=== PATIENT | female | born 1955 | race Hispanic/Latino ===

== ENCOUNTER 2017-05-08 17:47 | Emergency (ER) | payer OTHER ==
[2017-05-08] MEDS ORDERED: XYLOCAINE 1% MPF 5 mL INFILTRATI ONE (19:46)
[2017-05-08] MEDS ORDERED: ROCEPHIN IM ONE (19:46)
--- NOTE | 2017-05-08 20:18 | XRay Report ---
FINAL REPORT EXAM: XR TIBIA FIBULA 2V LT HISTORY: redness, swelling COMPARISON: None available. FINDINGS: AP lateral views of left tibia and fibula obtained. Subtle deformity of the proximal fibular diaphysis on the lateral view compatible sequelae of prior trauma. No definite acute fracture or focal bony erosive changes. Joint spaces are preserved. Soft tissues are unremarkable by plain film. IMPRESSION: No acute bony abnormality.
[2017-05-08 20:25] LABS: Basophils % (Auto) 0.2 % (0.0-1.8); Eosinophils % (Auto) 0.6 % (0.0-4.3); Mean Corpuscular HGB Conc 34 % (30-34); Mean Corpuscular Hemoglobin 30 pg (28-32); Mean Corpuscular Volume 89 fl (79-97); Platelet Count 302 K/mm3 (140-440); Red Blood Count 4.58 M/mm3 (3.65-5.03); Red Cell Distribution Width 14.6 % (13.2-15.2); White Blood Count 9.1 K/mm3 (4.5-11.0)
[2017-05-08 20:47] LABS: Chloride 92.1 mmol/L (98-107); Potassium 3.6 mmol/L (3.6-5.0)
[2017-05-08] MEDS ORDERED: NORCO 7.5/325 PO ONE (21:26)
[2017-05-08 21:47] LABS: BUN/Creatinine Ratio 17.33
--- NOTE | 2017-05-08 22:33 | Emergency Department Report ---
Abscess Boil HPI - HPI Chief Complaint: Skin/Abscess/Foreign Body Stated Complaint: LEFT RED SWOLLEN LEG Duration: 1 Week Location: Lower Extremity (left tib/fib) Severity: Mild History: Yes Pain, Yes Purulent Drainage, No Fever, No Numbness, No Foreign Body , No Previous History, No Insect Bite HPI: 61 year old female presents to ED with left lower leg redness and swelling and purulent drainage. patient has abscess present that is currently draining from open wound. patient denies history of DM. patient is neurologically intact and in no acute distress. Home Medications: Previous Rx's Medication Instructions Recorded Last Taken Type Cephalexin [Keflex] 500 mg PO Q12HR #14 cap 05/08/17 Unknown Rx Allergies/Adverse Reactions: Allergies Allergy/AdvReac Type Severity Reaction Status Date / Time No Known Allergies Allergy Verified 05/08/17 18:11 ED Review of Systems ROS: Stated complaint: LEFT RED SWOLLEN LEG Other details as noted in HPI Constitutional: denies: chills, fever Eyes: denies: eye pain, eye discharge, vision change ENT: denies: ear pain, throat pain Respiratory: denies: cough, shortness of breath, wheezing Cardiovascular: denies: chest pain, palpitations Endocrine: no symptoms reported Gastrointestinal: denies: abdominal pain, nausea, diarrhea Genitourinary: denies: urgency, dysuria, discharge Musculoskeletal: denies: back pain, joint swelling, arthralgia Skin: rash, change in color. denies: lesions Neurological: denies: headache, weakness, paresthesias Psychiatric: denies: anxiety, depression Hematological/Lymphatic: denies: easy bleeding, easy bruising ED Past Medical Hx - Past Medical History Previous Medical History?: Yes Hx Hypertension: Yes - Surgical History Past Surgical History?: Yes Hx Appendectomy: Yes Additional Surgical History: hysterectomy - Social History Smoking Status: Current Every Day Smoker Substance Use Type: None - Medications Home Medications: Home Medications Medication Instructions Recorded Confirmed Last Taken Type Cephalexin [Keflex] 500 mg PO Q12HR #14 cap 05/08/17 Unknown Rx ED Abscess Boil Physical Exam - Exam General: Vital signs noted. No distress. Alert and acting appropriately. Size: 3 cm Exam: Yes Tenderness, Yes Surrounding Cellulites/Erythema (warm to touch, purulent drainage from open wound present), Yes Normal Neurologic Exam, Yes Normal Circulation, No Fluctuance, No Lymphangitis, No Crepitation, No Heart Murmur ED Course Vital Signs 05/08/17 18:08 Temperature 98.7 F Pulse Rate 112 H Respiratory 16 Rate Blood Pressure 138/103 O2 Sat by Pulse 100 Oximetry Critical care attestation.: If time is entered above; I have spent that time in minutes in the direct care of this critically ill patient, excluding procedure time. ED Medical Decision Making - Lab Data Result diagrams: 05/08/17 20:14 05/08/17 20:14 Lab Results 05/08/17 05/08/17 Range/Units 20:14 20:14 WBC 9.1 (4.5-11.0) K/mm3 RBC 4.58 (3.65-5.03) M/mm3 Hgb 14.0 (10.1-14.3) gm/dl Hct 41.0 (30.3-42.9) % MCV 89 (79-97) fl MCH 30 (28-32) pg MCHC 34 (30-34) % RDW 14.6 (13.2-15.2) % Plt Count 302 (140-440) K/mm3 Lymph % (Auto) 16.1 (13.4-35.0) % Blount % (Auto) 9.5 H (0.0-7.3) % Eos % (Auto) 0.6 (0.0-4.3) % Baso % (Auto) 0.2 (0.0-1.8) % Lymph # 1.5 (1.2-5.4) K/mm3 Blount # 0.9 H (0.0-0.8) K/mm3 Eos # 0.1 (0.0-0.4) K/mm3 Baso # 0.0 (0.0-0.1) K/mm3 Seg Neutrophils % 73.6 H (40.0-70.0) % Seg Neutrophils # 6.7 (1.8-7.7) K/mm3 Sodium 137 (137-145) mmol/L Potassium 3.6 (3.6-5.0) mmol/L Chloride 92.1 L (98-107) mmol/L Carbon Dioxide 31 H (22-30) mmol/L Anion Gap 18 mmol/L BUN 26 H (7-17) mg/dL Creatinine 1.5 H (0.7-1.2) mg/dL Estimated GFR 35 ml/min BUN/Creatinine Ratio 17.33 % Glucose 113 H (65-100) mg/dL Calcium 9.0 (8.4-10.2) mg/dL pending blood cultures - Radiology Data Radiology results: report reviewed XR left tib/fib No acute bony abnormality - Medical Decision Making 61 year old female presents to ED with left lower leg redness, swelling, warmth to touch and purulent drainage x1 week. patient has blood cultures pending and recieved IM antibiotics during ED visit. patient has negative imaging study but has new onset elevated creatnine and BUN/impaired kidney function. patient denies history of decreased kidney injury. patient states she is fully compliant with blood pressure medication. I have notified patient that she should stay for possible admit to hospital for hydration and kidney function monitoring. patient has decided to leave against medical advice (AMA). She has normal mental status and full decisional capacity. The patient understands her condition and the risks of leaving AMA, including permanent disability, etc, and has had an opportunity to ask questions about her medical condition. The patient has been informed that she may return for care at any time, and has been referred to her PCP for follow up CRISTINA. patient has also been given RX for PO antibiotics for lower leg cellulitis. ED Disposition Clinical Impression: Cellulitis and abscess of left leg, Kidney function test abnormal Disposition: LEFT AGAINST MED ADVICE Is pt being admited?: No Does the pt Need Aspirin: No Condition: Undetermined Instructions: Cellulitis (ED), Impaired Kidney Function (ED) Additional Instructions: Please follow up with PCP CRISTINA or return to ED immediately for re evaluation of kidney function. Prescriptions: Cephalexin [Keflex] 500 mg PO Q12HR #14 cap Referrals: PRIMARY CARE, [Primary Care Provider] - CRISTINA Forms: AMA Form
[2017-05-08 22:56] VITALS: BP 145/89
== END 2017-05-08 22:20 | disposition left against medical advice (07) ==
LOC: ED 17:47
DX: L03.116 Cellulitis of left lower limb (principal); R94.4 Abnormal results of kidney function studies; I10 Essential (primary) hypertension; F17.200 Nicotine dependence, unspecified, uncomplicated
CPT/HCPCS: 36415; 73590; 80048; 85025; 87040; 96372; 99284; J0696

== ENCOUNTER 2017-12-10 11:57 | Emergency (ER) | payer OTHER ==
[2017-12-10 12:35] LABS: Basophils # (Auto) 0.1 K/mm3 (0.0-0.1); Basophils % (Auto) 0.4 % (0.0-1.8); Hematocrit 44.9 % (30.3-42.9); Hemoglobin 15.3 gm/dl (10.1-14.3); Lymphocytes # (Auto) 1.6 K/mm3 (1.2-5.4); Lymphocytes % (Auto) 11.4 % (13.4-35.0); Mean Corpuscular HGB Conc 34 % (30-34); Mean Corpuscular Hemoglobin 31 pg (28-32); Mean Corpuscular Volume 90 fl (79-97); Monocytes # (Auto) 1.3 K/mm3 (0.0-0.8); Monocytes % (Auto) 9.5 % (0.0-7.3); Platelet Count 313 K/mm3 (140-440); Red Blood Count 4.99 M/mm3 (3.65-5.03); Red Cell Distribution Width 14.6 % (13.2-15.2)
[2017-12-10 12:49] LABS: Calcium 9.1 mg/dL (8.4-10.2)
[2017-12-10] MEDS ORDERED: VANCOMYCIN/NS 1 GM/250 ML 1 GM/250 ML BAG IV ONE (17:39)
[2017-12-10] MEDS ORDERED: NACL 0.9% 1000 ML 1,000 ML IV ONE (17:54)
[2017-12-10] MEDS ORDERED: ZOFRAN IV ONE (17:54)
[2017-12-10] MEDS ORDERED: SUBLIMAZE IV ONE (17:54)
--- NOTE | 2017-12-10 17:59 | Emergency Department Report ---
ED Fall HPI - General Chief Complaint: Fall Stated Complaint: FACE SWOLLEN Time Seen by Provider: 12/10/17 17:38 Source: patient Mode of arrival: Ambulatory - History of Present Illness Initial Comments: Patient is 62 years old female with past medical history of hypertension. Patient presented to the ER for evaluation of a fall that happened 2 days ago while she was getting out of her bed. Patient stated that she tripped on something on the floor and fell and hit her head. Patient is complaining of headache and facial pain C said she fell on her right side in the face. He denied any loss of consciousness, numbness, tingling sensation, weakness, neck pain and no bowel or bladder incontinence. MD Complaint: fall -: days(s) Fall From: out of bed When Fall Occurred: # days [employer] (2 days ago) Fall Witnessed: yes, by family Place Fall Occurred: home Loss of Consciousness: none Prolonged Down Time?: no Symptoms Prior to Fall: none Location: head, face Severity: moderate Severity scale (0 -10): 6 Quality: sharp Context: tripped/slipped Associated Symptoms: headache. denies: neck pain, numbness, chest paint, shortness of breath, abdominal pain, hematuria, lightheaded, vertigo, confusion - Related Data Home Medications Medication Instructions Recorded Confirmed Last Taken No Known Home Medications [No 12/10/17 12/10/17 Unknown Reported Home Medications] Allergies Allergy/AdvReac Type Severity Reaction Status Date / Time No Known Allergies Allergy Verified 05/08/17 18:11 ED Review of Systems ROS: Stated complaint: FACE SWOLLEN Other details as noted in HPI Comment: All other systems reviewed and negative Constitutional: denies: chills, fever ENT: denies: ear pain Respiratory: denies: cough, shortness of breath, SOB with exertion Cardiovascular: denies: chest pain, palpitations Gastrointestinal: denies: abdominal pain, nausea, vomiting, diarrhea, constipation Genitourinary: denies: urgency, dysuria, frequency Neurological: headache. denies: weakness, numbness, paresthesias, confusion, abnormal gait ED Past Medical Hx - Past Medical History Previous Medical History?: Yes Hx Hypertension: Yes (no meds) Additional medical history: Cellulitis in the left leg - Surgical History Past Surgical History?: Yes Hx Appendectomy: Yes Additional Surgical History: hysterectomy - Social History Smoking Status: Current Every Day Smoker Substance Use Type: Prescribed - Medications Home Medications: Home Medications Medication Instructions Recorded Confirmed Last Taken Type No Known Home Medications [No 12/10/17 12/10/17 Unknown History Reported Home Medications] ED Physical Exam - General Limitations: No Limitations General appearance: alert, in no apparent distress - Head Head exam: Present: other (bilateral cheek tenderness and redness.) - Eye Eye exam: Present: normal appearance. Absent: PERRL - ENT ENT exam: Present: normal exam, normal orophraynx, mucous membranes moist, normal external ear exam - Neck Neck exam: Present: normal inspection, full ROM. Absent: tenderness, meningismus, lymphadenopathy, thyromegaly - Respiratory Respiratory exam: Present: normal lung sounds bilaterally. Absent: respiratory distress, wheezes, rales, rhonchi, chest wall tenderness - Cardiovascular Cardiovascular Exam: Present: regular rate, normal rhythm, normal heart sounds - GI/Abdominal GI/Abdominal exam: Present: soft, normal bowel sounds. Absent: distended, tenderness, guarding, rebound, rigid, organomegaly, mass, bruit, pulsatile mass - Extremities Exam Extremities exam: Present: normal inspection, full ROM, normal capillary refill - Back Exam Back exam: Present: normal inspection, full ROM. Absent: CVA tenderness (L) - Neurological Exam Neurological exam: Present: alert, oriented X3, CN II-XII intact, normal gait - Skin Skin exam: Present: warm, intact, normal color ED Course Vital Signs 12/10/17 12/10/17 12/10/17 12:01 16:45 18:30 Temperature 98.7 F 99.6 F 102.2 F H Pulse Rate 122 H 98 H 96 H Respiratory 20 14 16 Rate Blood Pressure 155/106 Blood Pressure 133/88 164/88 [Right] O2 Sat by Pulse 96 100 95 Oximetry 12/10/17 12/10/17 19:38 20:07 Temperature 99.0 F Pulse Rate 103 H Respiratory 20 20 Rate Blood Pressure Blood Pressure 137/81 [Right] O2 Sat by Pulse 99 Oximetry - Reevaluation(s) Reevaluation #1: 12/10/17 20:55 Patient stated that she is feeling much better. I advised patient that she needs to be admitted to the hospital for more IV antibiotic for facial cellulitis, patient does not want to be admitted and she stated that she will take her medicine by mouth. She denied any nausea or vomiting. I will prescribe clindamycin 300 mg 3 times a day for 10 days and advised the patient to follow-up with her primary care physician in 2-3 days. ED Medical Decision Making - Lab Data Result diagrams: 12/10/17 12:23 12/10/17 12:22 - Radiology Data Radiology results: report reviewed Referring Physician: CASEY FERRARO Patient Name: JEANNE QUINN Date of : 1955 Sex: Female Report Date: 2017-12-10 Report Status: Finalized Findings [facility] [address] [place] [address] Cat Scan Report Signed Patient: JEANNE QUINN MR#: [id number] : 1955 Acct:[id number] Age/Sex: 62 / F ADM Date: 12/10/17 Loc: ED Attending Dr: Ordering Physician: CASEY FERRARO Date of Service: 12/10/17 Procedure(s): CT facial bones wo con Accession Number(s): [id number] cc: CASEY FERRARO FINAL REPORT EXAM: CT FACIAL BONES WO CON HISTORY: FALL, FASCIAL TRAUMA TECHNIQUE: Standard unenhanced CT facial bones at 2.5 mm axial increments with coronal and sagittal reconstruction PRIORS: None. FINDINGS: No evidence for acute bony fracture is noted. There is mild subcutaneous soft tissue swelling over the cheeks and inferior orbits bilaterally. Opacification of 2 of the left ethmoid air cells is noted. The frontal, right ethmoid, maxillary, and sphenoid sinuses are clear with no evidence for air-fluid levels or mucosal thickening. Nasal septum is deviated slightly to the left of midline. The orbits are intact. The orbital globes are normal. The visualized mastoid air cells are also clear. IMPRESSION: Mild subcutaneous soft tissue swelling over the T10 inferior orbits bilaterally. Otherwise, negative CT of the facial bones. No evidence for acute fracture. Transcribed By: [facility] Dictated By: MARCIA PATRICIO MD Electronically Authenticated By: MARCIA PATRICIO MD Signed Date/Time: 12/10/171907 DD/ 07 TD/TT: 12/10/171907 Critical care attestation.: If time is entered above; I have spent that time in minutes in the direct care of this critically ill patient, excluding procedure time. ED Disposition Clinical Impression: Head injury, Cellulitis, face Disposition: - TO HOME OR SELFCARE Is pt being admited?: No Condition: Stable Instructions: Fall Prevention for Older Adults (ED), Cellulitis (ED) Referrals: PRIMARY CARE, [Primary Care Provider] - 3-5 Days
[2017-12-10] MEDS ORDERED: TYLENOL ONE (18:34)
[2017-12-10] MEDS ORDERED: TYLENOL PO ONE (18:37)
[2017-12-10] MEDS ORDERED: VANCOMYCIN/0.45 NS 1 GM/250 ML 1 GM/250 ML BAG IV ONE (19:00)
--- NOTE | 2017-12-10 19:07 | Cat Scan Report ---
FINAL REPORT EXAM: CT HEAD/BRAIN WO CON HISTORY: head injury/headache TECHNIQUE: Standard unenhanced CT of the head at 5.0 millimeter axial increments. PRIORS: None. FINDINGS: The ventricular system is normal in size and configuration. There is no evidence for parenchymal volume loss. There is no evidence for mass lesion, mass effect, midline shift, acute intracranial hemorrhage, or acute ischemia/ infarction. No evidence for acute skull fracture is seen. There is mild subcutaneous soft tissue swelling over the orbital regions bilaterally. No abnormality in the overlying scalp soft tissues is seen. Visualized paranasal sinuses are clear. Nasal septum is mildly deviated to the left of midline. IMPRESSION: Mild subcutaneous soft tissue swelling over the orbital regions bilaterally. No acute intracranial process noted.
--- NOTE | 2017-12-10 19:13 | Cat Scan Report ---
FINAL REPORT EXAM: CT FACIAL BONES WO CON HISTORY: FALL, FASCIAL TRAUMA TECHNIQUE: Standard unenhanced CT facial bones at 2.5 mm axial increments with coronal and sagittal reconstruction PRIORS: None. FINDINGS: No evidence for acute bony fracture is noted. There is mild subcutaneous soft tissue swelling over the cheeks and inferior orbits bilaterally. Opacification of 2 of the left ethmoid air cells is noted. The frontal, right ethmoid, maxillary, and sphenoid sinuses are clear with no evidence for air-fluid levels or mucosal thickening. Nasal septum is deviated slightly to the left of midline. The orbits are intact. The orbital globes are normal. The visualized mastoid air cells are also clear. IMPRESSION: Mild subcutaneous soft tissue swelling over the T10 inferior orbits bilaterally. Otherwise, negative CT of the facial bones. No evidence for acute fracture.
[2017-12-10] MEDS ORDERED: KCL IV SCH (20:00)
[2017-12-10] MEDS ORDERED: KCL 10MEQ/100ML 10 MEQ/100 ML BAG IV SCH (20:00)
[2017-12-10] MEDS ORDERED: NACL 0.45% IV SCH (20:00)
[2017-12-10] MEDS ORDERED: KCL 20 MEQ in NACL 0.9% 250ML 250 ML IV ONE (20:45)
[2017-12-10] MEDS ORDERED: K-DUR PO ONE ×2 (20:50→20:56)
[2017-12-10 22:41] VITALS: BP 130/79
--- NOTE | 2017-12-12 10:54 | Event Note ---
Date: 12/12/17 Positive blood cultures were reported to me. Patient's medical chart was reviewed. I have instructed that the patient be called back for a return evaluation.
--- NOTE | 2017-12-12 10:55 | ED Elopement Review ---
ED Pt Elopement review - Results review Lab results: Laboratory Tests 12/10/17 12/10/17 12:22 12:23 WBC 14.1 H RBC 4.99 Hgb 15.3 H Hct 44.9 H MCV 90 MCH 31 MCHC 34 RDW 14.6 Plt Count 313 Lymph % (Auto) 11.4 L Warrick % (Auto) 9.5 H Eos % (Auto) 0.0 Baso % (Auto) 0.4 Lymph # 1.6 Warrick # 1.3 H Eos # 0.0 Baso # 0.1 Seg Neutrophils % 78.7 H Seg Neutrophils # 11.1 H Sodium 133 L Potassium 2.9 L* Chloride 89.2 L Carbon Dioxide 26 Anion Gap 21 BUN 9 Creatinine 1.0 Estimated GFR 56 BUN/Creatinine Ratio 9 Glucose 164 H Calcium 9.1 - Call Back decision Pt Call Back Decision: Call pt to return to ED CRISTINA (positive blood cultures, abnormal labs, abnormal laboratory studies abnormal vital)
== END 2017-12-10 22:41 | disposition home or self-care (01) ==
LOC: ED 11:57
DX: S09.90XA Unspecified injury of head, initial encounter (principal); I10 Essential (primary) hypertension; Z90.710 Acquired absence of both cervix and uterus; F17.200 Nicotine dependence, unspecified, uncomplicated; Z90.49 Acquired absence of other specified parts of digestive tract; W06.XXXA Fall from bed, initial encounter; Y93.89 Activity, other specified; Y92.89 Other specified places as the place of occurrence of the external cause; Y99.8 Other external cause status
CPT/HCPCS: 36415; 70450; 70486; 80048; 85025; 87040; 93005; 93010; 96361; 96365; 96375; 99284; J2405; J3010; J3370; J3480; J7030; J7050

== ENCOUNTER 2021-02-09 01:20 | Emergency (ER) | payer MEDICARE, OTHER ==
[2021-02-09 02:27] VITALS: BP 126/98
== END 2021-02-09 05:39 | disposition home or self-care (01) ==
LOC: ED 01:20
DX: J02.9 Acute pharyngitis, unspecified (principal); H92.01 Otalgia, right ear; Z53.21 Procedure and treatment not carried out due to patient leaving prior to being seen by health care provider